=== PATIENT | female | born 1970 ===

== ENCOUNTER 2022-10-31 08:43 | Outpatient (CLI) | payer BC ==
--- NOTE | 2022-11-01 09:13 | Mammography Report ---
BILATERAL FIRST EVER DIGITAL SCREENING MAMMOGRAM 3D/2D: 10/31/2022 CLINICAL: Routine screening. Baseline exam. No prior exams were available for comparison. Both breasts are heterogeneously dense, which may obscure small masses (category c / 51-75% glandular tissue). There is an asymmetry with a microlobulated margin in the right breast anterior depth central to the nipple seen on the craniocaudal view only. There is an asymmetry with an obscured margin in the left breast anterior depth medial region seen on the craniocaudal view only. No other significant masses or calcifications are seen in either breast. IMPRESSION: INCOMPLETE: NEEDS ADDITIONAL IMAGING EVALUATION The asymmetry in the right breast anterior depth central to the nipple seen on the craniocaudal view only is indeterminate. The asymmetry in the left breast anterior depth medial region seen on the craniocaudal view only is i ndeterminate. Additional views with possible ultrasound are recommended. Based on the Tyrer Cuzick model (a risk assessment model) the patients lifetime risk is 13.6% and he r 10 year risk is 3.2%. According to the ACR, ACS, and NCCN guidelines, an annual breast MRI exam madelyn ng with mammogram is recommended if the patients lifetime risk is 20% or greater. This exam was interpreted at Station ID: [id number]. NOTE: For mammograms, a report in lay terms will be sent to the patient. Approximately 15% of breast malignancies will not be visualized mammographically. In the management of a palpable breast mass, a negative mammogram must not discourage biopsy of a clinically suspicious lesion. Electronically Signed By: Brent Martinez M.D. slc/:10/31/2022 16:26:35 ACR BI-RADS Category 0: Incomplete 3340F PARENCHYMAL PATTERN: (D) - The breast(s) demonstrate(s) heterogeneously dense fibroglandular parenchy ma. BI-RADS CATEGORY: (0) - 0 Mammo and [place] [id number] Immediate follow-up LATERALITY: (B)
== END 2022-10-31 08:44 | disposition home or self-care (01) ==
LOC: DI.S 08:43
DX: Z12.31 Encounter for screening mammogram for malignant neoplasm of breast (principal); R92.8 Other abnormal and inconclusive findings on diagnostic imaging of breast

== ENCOUNTER 2022-11-23 12:38 | Outpatient (CLI) | payer BC ==
--- NOTE | 2022-11-25 16:10 | Ultrasound Report ---
LIMITED ULTRASOUND OF RIGHT BREAST: 11/23/2022 CLINICAL: Patient returns today to evaluate a focal asymmetry in the right breast. Comparison is made to exams dated: 11/23/2022 mammogram and 10/31/2022 mammogram - [facility]. Color flow ultrasound of the right breast 6 o'clock region was performed. Molina scale images of the r eal-time examination were reviewed. There is a benign 0.5 cm oval simple cyst in the right breast at 6 o'clock anterior depth 2 cm from t he nipple. This oval simple cyst is anechoic. This corresponds with the mammographic finding. IMPRESSION: BENIGN There is no sonographic evidence of malignancy. The 0.5 cm oval simple cyst in the right breast is benign. A 1 year screening mammogram is recommended. This exam was interpreted at Station ID: [id number]. Electronically Signed By: Brent Martinez M.D. slc/:11/23/2022 14:12:06 Ultrasound BI-RADS: 2 Benign BI-RADS CATEGORY: (2) - 2 Mammogram [id number] 1 year screening LATERALITY: (B)
--- NOTE | 2022-11-25 16:10 | Ultrasound Report ---
LIMITED ULTRASOUND OF LEFT BREAST: 11/23/2022 CLINICAL: Patient returns today to evaluate a focal asymmetry in the left breast. Comparison is made to exams dated: 11/23/2022 mammogram and 10/31/2022 mammogram - [facility]. Color flow ultrasound of the left breast 10-12 o'clock region was performed. Molina scale images of th e real-time examination were reviewed. There is a benign 1 cm x 0.9 cm x 0.5 cm oval cyst with a septated internal wall in the left breast a t 10 o'clock anterior depth 2 cm from the nipple. This correlates with mammography findings. Color flow imaging demonstrates that there is no vascularity present. IMPRESSION: BENIGN There is no sonographic evidence of malignancy. The 1 cm oval cyst in the left breast is benign. A 1 year screening mammogram is recommended. Exam findings were conveyed to the patient. This exam was interpreted at Station ID: [id number]. Electronically Signed By: Brent Martinez M.D. slc/:11/23/2022 14:21:34 Ultrasound BI-RADS: 2 Benign BI-RADS CATEGORY: (2) - 2 Mammogram [id number] 1 year screening LATERALITY: (B)
--- NOTE | 2022-11-25 16:10 | Mammography Report ---
BILATERAL DIGITAL DIAGNOSTIC MAMMOGRAM 3D/2D: 11/23/2022 CLINICAL: Patient returns today to evaluate asymmetries in bilateral breasts. Comparison is made to exam dated: 10/31/2022 mammogram - [facility]. Both breasts are heterogeneously dense, which may obscure small masses (category c / 51-75% glandular tissue). There is an oval asymmetry in the right breast anterior depth central to the nipple seen on the crani ocaudal view only. There is an oval asymmetry with an obscured margin in the left breast anterior depth medial region se en on the craniocaudal view only. No other significant masses or calcifications are seen in either breast. IMPRESSION: INCOMPLETE: NEEDS ADDITIONAL IMAGING EVALUATION The oval asymmetry in the right breast anterior depth central to the nipple seen on the craniocaudal view only resembles a cyst and is indeterminate. The oval asymmetry in the left breast anterior depth medial region seen on the craniocaudal view only resembles a cyst and is indeterminate. A targeted ultrasound is recommended and will immediately follow. Based on the Tyrer Cuzick model (a risk assessment model) the patients lifetime risk is 13.6% and he r 10 year risk is 3.2%. According to the ACR, ACS, and NCCN guidelines, an annual breast MRI exam madelyn ng with mammogram is recommended if the patients lifetime risk is 20% or greater. This exam was interpreted at Station ID: [id number]. NOTE: For mammograms, a report in lay terms will be sent to the patient. Approximately 15% of breast malignancies will not be visualized mammographically. In the management of a palpable breast mass, a negative mammogram must not discourage biopsy of a clinically suspicious lesion. Electronically Signed By: Brent Martinez M.D. slc/:11/23/2022 13:15:32 ACR BI-RADS Category 0: Incomplete 3340F PARENCHYMAL PATTERN: (D) - The breast(s) demonstrate(s) heterogeneously dense fibroglandular parshaun shah. BI-RADS CATEGORY: (0) - 0 Ultrasound [id number] Immediate follow-up LATERALITY: (B)
== END 2022-11-23 12:39 | disposition home or self-care (01) ==
LOC: DI 12:38
DX: N60.02 Solitary cyst of left breast (principal); N60.01 Solitary cyst of right breast

== ENCOUNTER 2023-02-15 06:50 | Day surgery (SDC) | payer BC ==
[2023-02-15] MEDS ORDERED: LACTATED RINGERS 1,000 ML IV ONE ×2 (07:00→09:06)
[2023-02-15 07:13] LABS: HCG UR QUAL NEGATIVE
[2023-02-15] MEDS ORDERED: PROPOFOL 500 MG/50 ML 500 MG/50 ML VIAL ONE (09:13)
[2023-02-15] MEDS ORDERED: PROPOFOL 200 MG/20 ML VIAL IVP ONE (09:13)
--- NOTE | 2023-02-15 09:14 | ANESTHESIA ---
Pre-Anesthesia VS, & Labs - Diagnosis screen - Procedure colonoscopy Vital Signs: Temp Pulse Resp BP Pulse Ox O2 Flow Rate 36.1 C L 89 16 139/86 H 100 0 02/15/23 07:00 02/15/23 07:00 02/15/23 07:00 02/15/23 07:00 02/15/23 07:00 02/15/23 07:00 Height: 5 ft Weight (kg): 86.4 kg Body Mass Index: 37.2 BMI Classification: Obese - NPO >8 hours - Is Patient ?: No - Lab Results Lab results reviewed: Yes Home Medications and Allergies Allergies/Adverse Reactions: Allergies Allergy/AdvReac Type Severity Reaction Status Date / Time egg AdvReac Unknown Verified 02/14/23 12:36 latex AdvReac Rash Verified 02/14/23 12:36 Milk Containing Products AdvReac Cramps Verified 02/14/23 12:36 (Dairy) Anes History & Medical History - Anesthetic History Anesthesia Complications: reports: Post-Operative Nausea/Vomiting Family history of Anesthesia Complications: Denies Family history of Malignant Hyperthermia: Denies - Medical History Cardiovascular: reports: None Pulmonary: reports: None Gastrointestinal: reports: None Urinary: reports: None Neuro: reports: Motion sickness, Other (vertigo) Musculoskeletal: reports: None Endocrine/Autoimmune: reports: None Skin: reports: None Smoking Status: Never smoker Psychosocial: reports: No issues indicated Exam General: Alert, Oriented x3, Cooperative Dental: WNL Mouth Openin Fingerbreadth Neck Mobility: Normal Mallampati classification: II Thyromental Distance: 4-6 cm Respiratory: Lungs clear Cardiovascular: Regular rate Plan Anesthesia Type: Total IV Consent for Procedure(s) Verified and Reviewed: Yes Code Status: Attempt Resuscitation ASA classification: 2-Mild systemic disease Is this case an emergency?: No
[2023-02-15 09:31] VITALS: O2SAT 100
[2023-02-15 09:51] VITALS: BP 136/84
--- NOTE | 2023-02-15 10:23 | ANESTHESIA POST OP EVALUATION ---
Anesthesia Post Eval - Post Anesthesia Eval Vitals: Last Vital Signs Temp 36 C L 02/15/23 09:30 Pulse 86 02/15/23 09:42 Resp 18 02/15/23 09:42 BP 136/84 H 02/15/23 09:42 Pulse Ox 100 02/15/23 09:42 O2 Flow Rate 0 02/15/23 07:00 CV Function Including HR & BP: Stable Pain Control: Satisfactory Nausea & Vomiting: Negative Mental Status: Baseline Respiratory Status: Airway Patent Hydration Status: Satisfactory Anesthesia Complications: None
== END 2023-02-15 06:51 | disposition home or self-care (01) ==
LOC: SDS 06:50
PROVIDERS: ATTEND Surgery
DX: Z12.11 Encounter for screening for malignant neoplasm of colon (principal); K64.1 Second degree hemorrhoids; Z83.719 Family history of colon polyps, unspecified; Z80.0 Family history of malignant neoplasm of digestive organs; E66.9 Obesity, unspecified; Z68.37 Body mass index [BMI] 37.0-37.9, adult
CPT/HCPCS: 45378; 81025; J7120

== ENCOUNTER 2023-09-01 15:54 | Outpatient (CLI) | payer BC | END 2023-09-01 23:59 | disposition EMS.NT | LOC: EMS 15:54 | DX: Z04.1 Encounter for examination and observation following transport accident (principal); F41.9 Anxiety disorder, unspecified ==